=== PATIENT | male | born 1985 | race Caucasian/White ===

== ENCOUNTER 2017-01-08 18:00 | Emergency (ER) | payer OTHER ==
[~2017-01-08 18:00] MED LIST: ALBUTEROL17 GM INH; BIAXIN PO; NO MEDICATIONS; PREDNISONE PO
== END 2017-01-08 18:57 | disposition home or self-care (01) ==
LOC: SED 18:00
DX: F11.129 Opioid abuse with intoxication, unspecified (principal); I10 Essential (primary) hypertension; F17.200 Nicotine dependence, unspecified, uncomplicated
CPT/HCPCS: 99282